=== PATIENT | female | born 1950 | race Caucasian/White ===

== ENCOUNTER 2020-07-20 08:17 | Observation (INO) | payer BC, OTHER ==
[~2020-07-20] VITALS: Ht 170.2 cm; Wt 122.5 kg
[2020-07-20 08:27] VITALS: BP 172/63
--- NOTE | 2020-07-20 11:35 | NUR ---
UNSUCCESSFUL BLOOD DRAW X 2. LAB CALLED AND REQUESTED TO DO BLOOD DRAW.
[2020-07-20 12:08] LABS: ABSOLUTE NEUTROPHILS 9.8 thou/uL (1.4-8.2); BASOPHILS 0.5 % (0.0-2.0); EOSINOPHILS 0.7 % (0.0-3.0); HEMATOCRIT 45.6 % (37.0-47.0); HEMOGLOBIN 15.2 gm/dL (12.0-15.0); LYMPHOCYTES 15.1 % (24.0-44.0); MCH 28.4 pg (26.0-34.0); MCHC 33.3 g/dL (28.0-37.0); MCV 85.2 fL (80.0-100.0); MONOCYTES 8.9 % (1.0-8.0); PLATELET COUNT 248 thou/uL (150-400); POLYS 74.8 % (36.0-66.0); RBC 5.35 mil/uL (4.20-5.00); RDW 14.5 % (10.5-14.5); WBC 13.1 thou/uL (4.0-11.0)
[2020-07-20 12:20] LABS: CALCIUM 9.4 mg/dL (8.5-10.1); CREATININE 0.7 mg/dL (0.6-1.0)
[2020-07-20 12:24] LABS: POTASSIUM 4.9 mmol/L (3.5-5.1)
[2020-07-20 12:25] LABS: TOTAL BILIRUBIN 1.1 mg/dL (0.2-1.0); TOTAL PROTEIN 7.9 g/dL (6.4-8.2)
[2020-07-20] MEDS ORDERED: HYDROCHLOROTHIA25 M2 PO (16:40)
[2020-07-20] MEDS ORDERED: MECLIZINE HCL25 MG PO (16:40)
[2020-07-20] MEDS ORDERED: ALPRAZOLAM1 MG PO (16:40)
[2020-07-20] MEDS ORDERED: IBUPROFEN 800800 M1 PO (16:41)
[2020-07-21 05:15] LABS: HEMATOCRIT 44.6 % (37.0-47.0); HEMOGLOBIN 14.7 gm/dL (12.0-15.0); MCH 28.4 pg (26.0-34.0); MCHC 32.9 g/dL (28.0-37.0); MCV 86.3 fL (80.0-100.0); RBC 5.16 mil/uL (4.20-5.00); RDW 14.3 % (10.5-14.5); WBC 12.9 thou/uL (4.0-11.0)
[2020-07-21 05:34] LABS: ALBUMIN 3.4 g/dL (3.4-5.0); CALCIUM 9.3 mg/dL (8.5-10.1); MAGNESIUM 2.2 mg/dL (1.8-2.4); POTASSIUM 4.3 mmol/L (3.5-5.1); TOTAL BILIRUBIN 0.7 mg/dL (0.2-1.0); TOTAL PROTEIN 7.5 g/dL (6.4-8.2)
[2020-07-21 11:03] VITALS: BP 126/36
[2020-07-21 12:56] VITALS: BP 126/36
[2020-07-21] MEDS ORDERED: KEFLEX500 M1 PO (14:31)
[2020-07-21 14:45] VITALS: BP 126/36
[2020-07-21 15:52] VITALS: BP 149/64
== END 2020-07-21 15:52 | disposition home or self-care (01) ==
LOC: ER 08:17 → EROBS 14:38
PROVIDERS: Emergency Medicine; ADMIT Hospitalist; ATTEND Hospitalist
DX: L03.116 Cellulitis of left lower limb (principal); M10.9 Gout, unspecified; Z79.899 Other long term (current) drug therapy; Z20.828 Contact with and (suspected) exposure to other viral communicable diseases